=== PATIENT | female | born 1960 | race Caucasian/White ===

== ENCOUNTER 2020-02-10 13:38 | Inpatient (IN) | payer MEDICARE, OTHER ==
[~2020-02-10] VITALS: Ht 160 cm; Wt 63.5 kg
[2020-02-10] MEDS ORDERED: CALC-555 PO (14:08)
[2020-02-10] MEDS ORDERED: BISA10SU61 RC (14:08)
[2020-02-10] MEDS ORDERED: DONE10TA44 PO (14:08)
[2020-02-10] MEDS ORDERED: ACET-73 PO (14:08)
[2020-02-10] MEDS ORDERED: ACET-2154 PO (14:08)
[2020-02-10] MEDS ORDERED: MAGN400O6 PO (14:08)
[2020-02-10] MEDS ORDERED: AMLO5TAB9 PO (14:08)
[2020-02-10] MEDS ORDERED: ASCO500C18 PO (14:08)
[2020-02-10] MEDS ORDERED: SERT50TA PO (14:08)
[2020-02-10] MEDS ORDERED: TIZA4TAB5 PO (14:08)
[2020-02-10] MEDS ORDERED: NA P133E RC (14:08)
[2020-02-10] MEDS ORDERED: OXCA600T8 PO (14:08)
[2020-02-10] MEDS ORDERED: IBUP-1955 PO (14:08)
[2020-02-10] MEDS ORDERED: MEMA10TA PO (14:08)
[2020-02-10] MEDS ORDERED: MULTIVITAMINS PO (14:08)
[2020-02-10] MEDS ORDERED: OXCA300T15 PO (14:08)
--- NOTE | 2020-02-10 14:10 | NUR ---
PT BROUGHT IN BY AMBULANCE VIA GURNEY FROM [facility] ([facility]): C/O FEVER OF 100.2f PT AT RA, MASK WORN, WITH R SHOULDER IMMOBILIZER AND BOTH ANKLE PADDED PROTECTORS NAD NONVERBAL AIRWAY PATENT. Patient is UNable to follow /comprehend directions. NONAMBULATORY. No cardiovascular distress noted. Rate and rhythm are regular. No CP. No respiratory distress noted. Respirations even & unlabored with symmetrical chest rise. No adventitious sounds noted. No recent travel. 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 Patient is INcontinent of bowel and bladder function.
[2020-02-10 15:00] LABS: BASOPHILS % (AUTO) 0.3 % (0.0-2.0); EOSINOPHILS % (AUTO) 0.1 % (0.0-7.0); HEMATOCRIT 46.7 % (31.2-41.9); HEMOGLOBIN 15.2 g/dL (10.9-14.3); LYMPHOCYTES # (AUTO) 0.8 K/uL (20.0-40.0); LYMPHOCYTES % (AUTO) 8.6 % (20.5-51.5); MEAN CORPUSCULAR HEMOGLOBIN 28.1 uug (24.7-32.8); MEAN CORPUSCULAR HGB CONC 33 g/dL (32.3-35.6); MEAN CORPUSCULAR VOLUME 86.5 fL (75.5-95.3); MONOCYTES # (AUTO) 0.5 K/uL (2.0-10.0); MONOCYTES % (AUTO) 5.6 % (0.0-11.0); NEUTROPHILS # (AUTO) 7.5 K/uL (1.8-8.9); NEUTROPHILS % (AUTO) 85.4 % (38.5-71.5); PLATELET COUNT (AUTO) 460 K/uL (179-408); WHITE BLOOD COUNT (AUTO) 8.8 K/uL (3.8-11.8)
[2020-02-10 15:10] LABS: CREATININE 0.8 mg/dL (0.6-1.3); POTASSIUM 3.5 mmol/L (3.5-5.1)
--- NOTE | 2020-02-10 15:42 | NUR ---
EPIC PAGED DR BOLDEN
[2020-02-10 15:47] LABS: *BILIRUBIN,URIN NEGATIVE (NEGATIVE); *BLOOD, URINE NEGATIVE (NEGATIVE); *CLARITY,URINE CLEAR (CLEAR); *COLOR,URINE YELLOW (YELLOW); *KETONES,URINE 1+ (NEGATIVE); *UROBILINOGEN,URINE 0.2 E.U./dl (NORMAL); LEUKOCYTE ESTERASE ,URINE 1+ (NEGATIVE); NITRITE, URINE NEGATIVE (NEGATIVE); PH,URINE 5.5 (5.0-8.0); UGLUCOSE NEGATIVE (NEGATIVE)
[2020-02-10 15:49] LABS: BILIRUBIN,TOTAL 0.3 mg/dL (0.2-1.0)
[2020-02-10 15:59] LABS: BACTERIA,URINE FEW /HPF (NONE SEEN); RBC,URINE 0-3 /HPF (0-3)
[2020-02-10 16:00] LABS: SQUAMOUS EPITHELIAL CELL,UR MODERATE /HPF (NONE SEEN)
--- NOTE | 2020-02-10 16:00 | NUR ---
HAND OFF AND SBAR GIVEN TO MARCH PT OK TO ADMIT TO TELE RM [id number] DX: COVID 19 INFECTION, FEVER UNDER DR SHEPPARD
[2020-02-10] MEDS ORDERED: CEFTRIAXONE 1 G in IV DEXTROSE 5% 50 ML IV ONE (16:30)
[2020-02-10] MEDS ORDERED: IV NORMAL SALINE 1000 ML BAG IV ONE (16:30)
[2020-02-10] MEDS ORDERED: CEFTRIAXONE /D5W 50ML IVPB **ER PYXIS IV ONE (16:48)
[2020-02-10] MEDS ORDERED: FLEET ENEMA 133 ML BOTTLE RC PRN (17:45)
[2020-02-10] MEDS ORDERED: MAGNESIUM HYDROXIDE 30 ML LIQUID UDC PO PRN (17:45)
[2020-02-10] MEDS ORDERED: BISACODYL 10 MG SUPP.RECT RC PRN (17:45)
[2020-02-10] MEDS: OXCARBAZEPINE 300 MG TABLET PO SCH (18:00)
[2020-02-10] MEDS: AZITHROMYCIN IV 500 MG in IV DEXTROSE 5% 250 ML IV SCH (18:00)
[2020-02-10] MEDS ORDERED: ACETAMINOPHEN ES 500 MG TABLET PO PRN (18:00)
--- NOTE | 2020-02-10 18:00 | NUR ---
TRANSPORTED TO FLOOR
--- NOTE | 2020-02-10 18:15 | NUR ---
RECEIVED PATIENT FROM ER AND ADMITTED TO THE [facility] WITH DIAGNOSIS OF COVID 19 AND FEVER. NO SOB NOTED AND PATIENT AFEBRILE 98.0. NO C/O PAIN. KEPT CLEAN AND DRY AT ALL TIMES. IV SITE ON LEFT HAND # 20 GAUGE. WILL CONTINUE TO MONITOR.
[2020-02-10 19:37] VITALS: BP 138/87
--- NOTE | 2020-02-10 20:00 | NUR ---
Received patient in bed asleep, arousable to touch. Patient nonverbal. No SOB noted. Admission protocol continued. SR on Tele monitor. Patient w/ sling on R arm for R clavicle fx. Body assessment done. Call light in reach
[2020-02-10] MEDS: ACETAMINOPHEN 325 MG TABLET PO PRN (22:05)
[2020-02-10 22:08] VITALS: BP 141/79
[2020-02-11] VITALS: BP 132/83
[2020-02-11 04:00] VITALS: BP 122/88
[2020-02-11] MEDS: PANTOPRAZOLE ORAL SUSPENSION 40 MG SUSPDR.PKT PO SCH ×2 (06:02→09:16)
--- NOTE | 2020-02-11 06:52 | NUR ---
Patient slept well. No complaints of pain. Afebrile at this time. SR on Tele monitor. On contact/droplet isolation for covid19. Turned and repositioned Q2. Will endorse accordingly
[2020-02-11] MEDS ORDERED: PANTOPRAZOLE SODIUM 40 MG TABLET.DR PO SCH (07:00)
[2020-02-11 07:19] LABS: BASOPHILS % (AUTO) 0.4 % (0.0-2.0); HEMATOCRIT 45.5 % (31.2-41.9); HEMOGLOBIN 14.8 g/dL (10.9-14.3); LYMPHOCYTES # (AUTO) 0.7 K/uL (20.0-40.0); LYMPHOCYTES % (AUTO) 9.9 % (20.5-51.5); MEAN CORPUSCULAR HEMOGLOBIN 28.6 uug (24.7-32.8); MEAN CORPUSCULAR HGB CONC 33 g/dL (32.3-35.6); MEAN CORPUSCULAR VOLUME 87.7 fL (75.5-95.3); MONOCYTES # (AUTO) 0.6 K/uL (2.0-10.0); MONOCYTES % (AUTO) 7.9 % (0.0-11.0); NEUTROPHILS # (AUTO) 5.9 K/uL (1.8-8.9); NEUTROPHILS % (AUTO) 81.8 % (38.5-71.5); PLATELET COUNT (AUTO) 494 K/uL (179-408); RED BLOOD CELL COUNT(AUTO) 5.19 MIL/uL (3.63-4.92); WHITE BLOOD COUNT (AUTO) 7.2 K/uL (3.8-11.8)
[2020-02-11 07:36] LABS: BILIRUBIN,TOTAL 0.4 mg/dL (0.2-1.0); CREATININE 0.8 mg/dL (0.6-1.3); PHOSPHOROUS 3.8 mg/dL (2.5-4.9); POTASSIUM 4.3 mmol/L (3.5-5.1)
[2020-02-11 08:00] VITALS: BP 140/87
[2020-02-11] MEDS ORDERED: Medication Not On Formulary EA (Ascorbic Acid (Vitamin C) 500 MG) PO SCH (09:00)
[2020-02-11] MEDS ORDERED: DONEPEZIL 10 MG TABLET PO SCH (09:00)
[2020-02-11] MEDS: OXCARBAZEPINE 300 MG TABLET PO SCH ×2 (09:16→17:16)
[2020-02-11] MEDS: ASCORBIC ACID 500 MG TABLET PO SCH (09:16)
[2020-02-11] MEDS: MEMANTINE HCL 10 MG TABLET PO SCH ×2 (09:17→16:32)
[2020-02-11] MEDS: MULTIVIT, IRON, MIN NO. 8, FA TABLET PO SCH (09:17)
[2020-02-11] MEDS: SERTRALINE HCL 50 MG TABLET PO SCH (09:17)
[2020-02-11] MEDS: CALCIUM CARB/VITAMIN D 500MG-200UNITS TABLET PO SCH (09:17)
[2020-02-11] MEDS: TIZANIDINE HCL 4 MG TABLET PO SCH ×2 (09:21→16:32)
[2020-02-11] MEDS: AMLODIPINE 5 MG TABLET PO SCH (09:29)
[2020-02-11 11:00] VITALS: BP 136/77
[2020-02-11 11:59] LABS: POTASSIUM 3.8 mmol/L (3.5-5.1)
[2020-02-11] MEDS ORDERED: MULTIVITAMINS PO SCH (13:00)
[2020-02-11 16:00] VITALS: BP 131/73
[2020-02-11] MEDS: AZITHROMYCIN IV 500 MG in IV DEXTROSE 5% 250 ML IV SCH (17:15)
[2020-02-11] MEDS: CEFTRIAXONE 1 G in IV DEXTROSE 5% 50 ML IV SCH (18:08)
--- NOTE | 2020-02-11 19:30 | NUR ---
Received patient asleep. No signs or symptoms of distress noted at this time. Patient on isolation for COVID-19. NSR on tele monitor. Has right arm sling. Will continue to monitor patient.
[2020-02-11 20:05] VITALS: BP 141/86
--- NOTE | 2020-02-11 20:15 | NUR ---
Daughter at bedside and was approved by [facility]. Gus did not feel comfortable signing the no code status for patient. All family is agreeable to having patient as DNR/DNI. Kathryn, eldest daughter to make final decision. Called and spoke to Kathryn. Received verbal telephone consent from Kathryn that patient may be placed on DNR/DNI. Charge nurse, Noemi RICHARDS and Jose RICHARDS received telephone consent. Dr. Moody notified of consent. Dr. Mckeon also notified. Awaiting Dr. Mckeon's response. Will continue to monitor patient. Addendum: 02/11/20 at 2201 by JOSE JARVIS RN Error. Wrong patient.
[2020-02-11] MEDS ORDERED: MORPHINE SULFATE PF IV DRIP 100 MG in IV DEXTROSE 5% 96 ML IV PRN (21:00)
[2020-02-11] MEDS: HYDROXYCHLOROQUINE SULFATE 200 MG TABLET PO SCH (21:10)
[2020-02-12] VITALS: BP 146/87
[2020-02-12 04:00] VITALS: BP 134/86
--- NOTE | 2020-02-12 06:27 | NUR ---
Patient shows no signs or symptoms of distress at this time. NSR on tele monitor. 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 Will endorse patient to day shift nurse in stable condition.
[2020-02-12 07:14] LABS: BASOPHILS # (AUTO) 0.1 K/uL (0.0-8.0); BASOPHILS % (AUTO) 0.7 % (0.0-2.0); EOSINOPHILS % (AUTO) 0.1 % (0.0-7.0); HEMATOCRIT 44.7 % (31.2-41.9); HEMOGLOBIN 14.5 g/dL (10.9-14.3); LYMPHOCYTES # (AUTO) 0.7 K/uL (20.0-40.0); LYMPHOCYTES % (AUTO) 8.5 % (20.5-51.5); MEAN CORPUSCULAR HEMOGLOBIN 28.7 uug (24.7-32.8); MEAN CORPUSCULAR HGB CONC 33 g/dL (32.3-35.6); MEAN CORPUSCULAR VOLUME 88.2 fL (75.5-95.3); MONOCYTES # (AUTO) 0.5 K/uL (2.0-10.0); MONOCYTES % (AUTO) 6.9 % (0.0-11.0); NEUTROPHILS # (AUTO) 6.5 K/uL (1.8-8.9); NEUTROPHILS % (AUTO) 83.8 % (38.5-71.5); PLATELET COUNT (AUTO) 443 K/uL (179-408); RED BLOOD CELL COUNT(AUTO) 5.07 MIL/uL (3.63-4.92); WHITE BLOOD COUNT (AUTO) 7.8 K/uL (3.8-11.8)
--- NOTE | 2020-02-12 07:20 | NUR ---
Received pt in bed asleep but arousable to name and touch. Could only open one eye and close immediately. Doesn't answer questions and obey commands. On O2 @ 2L sat 95%. Right sling in place for right clavicle fx from [facility]. Left hand 20g TKO. Weakness on all extremities.Pt on KCI mattress. Bed locked in lowest position with siderails 2x up. Bed alarm on. Call light within reach. Will continue to monitor.
[2020-02-12 07:52] LABS: CREATININE 0.9 mg/dL (0.6-1.3); PHOSPHOROUS 2.9 mg/dL (2.5-4.9); POTASSIUM 3.4 mmol/L (3.5-5.1)
[2020-02-12] MEDS: CALCIUM CARB/VITAMIN D 500MG-200UNITS TABLET PO SCH (09:38)
[2020-02-12] MEDS: PANTOPRAZOLE ORAL SUSPENSION 40 MG SUSPDR.PKT PO SCH (09:38)
[2020-02-12] MEDS: AMLODIPINE 5 MG TABLET PO SCH (09:40)
[2020-02-12] MEDS: TIZANIDINE HCL 4 MG TABLET PO SCH ×2 (09:40→17:37)
[2020-02-12] MEDS: ASCORBIC ACID 500 MG TABLET PO SCH (09:40)
[2020-02-12] MEDS: MEMANTINE HCL 10 MG TABLET PO SCH ×2 (09:40→17:36)
[2020-02-12] MEDS: SERTRALINE HCL 50 MG TABLET PO SCH (09:41)
[2020-02-12] MEDS: MULTIVIT, IRON, MIN NO. 8, FA TABLET PO SCH (09:53)
[2020-02-12] MEDS: OXCARBAZEPINE 300 MG TABLET PO SCH ×2 (09:54→18:28)
[2020-02-12] MEDS: HYDROXYCHLOROQUINE SULFATE 200 MG TABLET PO SCH ×2 (09:54→17:37)
[2020-02-12 11:47] VITALS: BP 136/80
--- NOTE | 2020-02-12 15:09 | NUR ---
Finished Zoom meeting with sister David.
[2020-02-12] MEDS: ACETAMINOPHEN 325 MG TABLET PO PRN (15:34)
[2020-02-12 16:00] VITALS: BP 134/88
--- NOTE | 2020-02-12 16:00 | NUR ---
Patient's temp at 101.3. Tylenol 650mg PRN given.
--- NOTE | 2020-02-12 16:45 | NUR ---
Endorsed pt to Nanda RICHARDS for change of assignment
[2020-02-12] MEDS ORDERED: POTASSIUM CHLORIDE 20 MEQ POWDER PACKET PO ONE (17:00)
[2020-02-12] MEDS: CEFTRIAXONE 1 G in IV DEXTROSE 5% 50 ML IV SCH (17:37)
[2020-02-12] MEDS: IV 1/2NS 1000 ML 1,000 ML IV PRN (17:38)
[2020-02-12] MEDS: AZITHROMYCIN IV 500 MG in IV DEXTROSE 5% 250 ML IV SCH (18:28)
--- NOTE | 2020-02-12 20:00 | NUR ---
Patient received in bed, sleeping. Difficult to arouse. Not responsive to verbal and tactile stimuli. Some response to painful stimulus. No signs of difficulty in breathing, breathing is even and unlabored. O2 kept on 3LPM, and patient is saturating at 99%. Rest of vitals are stable as well, as recorded. Fall, isolation and aspiration precautions followed. Sinus iliana on tele @ 55, regular. Will continue to monitor.
[2020-02-12 20:46] VITALS: BP 113/70
[2020-02-13 00:25] VITALS: BP 137/70
[2020-02-13 06:03] VITALS: BP 145/90
--- NOTE | 2020-02-13 06:24 | NUR ---
Patient slept well overnight, with no adverse events. No complaints of pain. Afebrile at this time. Sinus Frederic on Tele monitor. Kept contact/droplet isolation for covid19. Turned and repositioned Q2, maintained fall precautiosn. Will endorse accordingly.
[2020-02-13 06:54] LABS: BASOPHILS # (AUTO) 0.1 K/uL (0.0-8.0); BASOPHILS % (AUTO) 1.5 % (0.0-2.0); EOSINOPHILS % (AUTO) 0.7 % (0.0-7.0); HEMATOCRIT 41.6 % (31.2-41.9); HEMOGLOBIN 13.5 g/dL (10.9-14.3); LYMPHOCYTES # (AUTO) 0.7 K/uL (20.0-40.0); LYMPHOCYTES % (AUTO) 11.5 % (20.5-51.5); MEAN CORPUSCULAR HEMOGLOBIN 28.5 uug (24.7-32.8); MEAN CORPUSCULAR HGB CONC 33 g/dL (32.3-35.6); MEAN CORPUSCULAR VOLUME 87.4 fL (75.5-95.3); MONOCYTES # (AUTO) 0.5 K/uL (2.0-10.0); MONOCYTES % (AUTO) 8.5 % (0.0-11.0); NEUTROPHILS # (AUTO) 4.6 K/uL (1.8-8.9); NEUTROPHILS % (AUTO) 77.8 % (38.5-71.5); PLATELET COUNT (AUTO) 415 K/uL (179-408); RED BLOOD CELL COUNT(AUTO) 4.76 MIL/uL (3.63-4.92); WHITE BLOOD COUNT (AUTO) 5.9 K/uL (3.8-11.8)
[2020-02-13 07:04] LABS: CREATININE 0.6 mg/dL (0.6-1.3)
[2020-02-13 07:28] LABS: POTASSIUM 2.8 mmol/L (3.5-5.1)
--- NOTE | 2020-02-13 08:30 | NUR ---
Received patient in bed, non verbal. No signs of distress noted. No SOB, Afebrile. No signs of Pain or discomfort. On contact and droplet Isolation for positive covid 19. Proper PPE strictly Observed. Ket clean and comfortable. Will continue to monitor.
[2020-02-13] MEDS: AMLODIPINE 5 MG TABLET PO SCH (09:10)
[2020-02-13] MEDS: MEMANTINE HCL 10 MG TABLET PO SCH ×2 (09:10→16:06)
[2020-02-13] MEDS: HYDROXYCHLOROQUINE SULFATE 200 MG TABLET PO SCH ×2 (09:10→16:06)
[2020-02-13] MEDS: PANTOPRAZOLE ORAL SUSPENSION 40 MG SUSPDR.PKT PO SCH (09:10)
[2020-02-13] MEDS: CALCIUM CARB/VITAMIN D 500MG-200UNITS TABLET PO SCH (09:10)
[2020-02-13] MEDS: MULTIVIT, IRON, MIN NO. 8, FA TABLET PO SCH (09:10)
[2020-02-13] MEDS: OXCARBAZEPINE 300 MG TABLET PO SCH ×2 (09:11→17:07)
[2020-02-13] MEDS: SERTRALINE HCL 50 MG TABLET PO SCH (09:11)
[2020-02-13] MEDS: TIZANIDINE HCL 4 MG TABLET PO SCH ×2 (09:11→16:06)
[2020-02-13] MEDS: ASCORBIC ACID 500 MG TABLET PO SCH (09:11)
[2020-02-13 12:00] VITALS: BP 139/86
[2020-02-13] MEDS ORDERED: POTASSIUM CHLORIDE 20 MEQ POWDER PACKET PO ONE ×2 (12:00→17:00)
[2020-02-13] MEDS ORDERED: POTASSIUM CHLORIDE 20 MEQ TAB.PRT.SR PO ONE ×2 (12:00→17:00)
[2020-02-13] MEDS: IV 1/2NS 1000 ML 1,000 ML IV PRN (15:06)
[2020-02-13] MEDS: CEFTRIAXONE 1 G in IV DEXTROSE 5% 50 ML IV SCH (16:05)
[2020-02-13 16:32] VITALS: BP 107/57
[2020-02-13] MEDS: AZITHROMYCIN IV 500 MG in IV DEXTROSE 5% 250 ML IV SCH (17:07)
--- NOTE | 2020-02-13 18:31 | NUR ---
Patient in bed, Not opening her eyes, non verbal. No signs of distress noted. No SOB. saturating 98% on 2L, No signs of Pain or discomfort. All due medications given as ordered. Potassium 60meq given for Potassium of 2.8. Kept clean and comfortable. Will endorse to Oncoming Shift.
[2020-02-13 21:56] VITALS: BP 99/60
[2020-02-14 01:31] VITALS: BP 137/65
[2020-02-14 04:38] VITALS: BP 123/91
[2020-02-14] MEDS: IV 1/2NS 1000 ML 1,000 ML IV PRN ×2 (05:52→22:56)
--- NOTE | 2020-02-14 06:31 | NUR ---
Patient slept well the whole night. No SOB. SR on Tele monitor. Remains afebrile. Will endorse accordingly
[2020-02-14 07:03] LABS: CREATININE 0.5 mg/dL (0.6-1.3); POTASSIUM 3.8 mmol/L (3.5-5.1)
--- NOTE | 2020-02-14 07:30 | NUR ---
Received pt in bed asleep, arousable to touch and light pain, non-verbal, and doesn't follow commands. Pt grimaces with pain. O2 @ 2L sat 94%, no SOB and no distress noted at this time. Right sling in place and adjusted. IV left hand 22g infusing 1/2 NS @ 75cc/hr. Bed locked in lowest position with siderails 2x up. Will continue to monitor.
[2020-02-14] MEDS: SERTRALINE HCL 50 MG TABLET PO SCH (09:55)
[2020-02-14] MEDS: ASCORBIC ACID 500 MG TABLET PO SCH (09:57)
[2020-02-14] MEDS: MEMANTINE HCL 10 MG TABLET PO SCH ×2 (09:57→17:13)
[2020-02-14] MEDS: MULTIVIT, IRON, MIN NO. 8, FA TABLET PO SCH (09:58)
[2020-02-14] MEDS: HYDROXYCHLOROQUINE SULFATE 200 MG TABLET PO SCH ×2 (09:58→17:13)
[2020-02-14] MEDS: PANTOPRAZOLE ORAL SUSPENSION 40 MG SUSPDR.PKT PO SCH (09:58)
[2020-02-14] MEDS: CALCIUM CARB/VITAMIN D 500MG-200UNITS TABLET PO SCH (09:59)
[2020-02-14] MEDS: AMLODIPINE 5 MG TABLET PO SCH (10:01)
[2020-02-14] MEDS: OXCARBAZEPINE 300 MG TABLET PO SCH ×2 (10:01→17:14)
[2020-02-14] MEDS: TIZANIDINE HCL 4 MG TABLET PO SCH ×2 (10:02→17:13)
[2020-02-14 11:36] VITALS: BP 121/67
[2020-02-14 15:03] VITALS: BP 123/63
[2020-02-14] MEDS: CEFTRIAXONE 1 G in IV DEXTROSE 5% 50 ML IV SCH (17:12)
[2020-02-14 17:22] VITALS: BP 120/68
[2020-02-14] MEDS: AZITHROMYCIN IV 500 MG in IV DEXTROSE 5% 250 ML IV SCH (17:35)
--- NOTE | 2020-02-14 18:00 | NUR ---
Fleet enema PRN given since pt has not had a BM. tolerated well.
[2020-02-14 22:06] VITALS: BP 128/68
[2020-02-15 00:29] VITALS: BP 132/73
[2020-02-15] MEDS ORDERED: Z GUARD REMEDY PASTE 57 GM TUBE TOP PRN (00:30)
[2020-02-15 04:35] VITALS: BP 134/64
--- NOTE | 2020-02-15 06:46 | NUR ---
Patient slept well. No SOB noted. Remains afebrile. SB and SR on Tele monitor. IV on L hand intact and patent w/ IVF infusing. Will endorse accordingly
[2020-02-15 06:48] LABS: BASOPHILS # (AUTO) 0.1 K/uL (0.0-8.0); BASOPHILS % (AUTO) 1.2 % (0.0-2.0); EOSINOPHILS # (AUTO) 0.1 K/uL (0.0-0.7); EOSINOPHILS % (AUTO) 1.8 % (0.0-7.0); HEMATOCRIT 38.9 % (31.2-41.9); HEMOGLOBIN 12.8 g/dL (10.9-14.3); LYMPHOCYTES # (AUTO) 1.1 K/uL (20.0-40.0); LYMPHOCYTES % (AUTO) 18.8 % (20.5-51.5); MEAN CORPUSCULAR HEMOGLOBIN 28.5 uug (24.7-32.8); MEAN CORPUSCULAR HGB CONC 33 g/dL (32.3-35.6); MEAN CORPUSCULAR VOLUME 86.8 fL (75.5-95.3); MONOCYTES # (AUTO) 0.6 K/uL (2.0-10.0); MONOCYTES % (AUTO) 10.1 % (0.0-11.0); NEUTROPHILS # (AUTO) 4.1 K/uL (1.8-8.9); NEUTROPHILS % (AUTO) 68.1 % (38.5-71.5); PLATELET COUNT (AUTO) 353 K/uL (179-408); RED BLOOD CELL COUNT(AUTO) 4.49 MIL/uL (3.63-4.92); WHITE BLOOD COUNT (AUTO) 6.1 K/uL (3.8-11.8)
[2020-02-15 08:06] LABS: CREATININE 0.5 mg/dL (0.6-1.3); MAGNESIUM 2.4 mg/dL (1.8-2.4); PHOSPHOROUS 2.5 mg/dL (2.5-4.9); POTASSIUM 3.4 mmol/L (3.5-5.1)
[2020-02-15] MEDS: OXCARBAZEPINE 300 MG TABLET PO SCH ×2 (08:48→17:49)
[2020-02-15] MEDS: SERTRALINE HCL 50 MG TABLET PO SCH (08:48)
[2020-02-15] MEDS: CALCIUM CARB/VITAMIN D 500MG-200UNITS TABLET PO SCH (08:49)
[2020-02-15] MEDS: MEMANTINE HCL 10 MG TABLET PO SCH ×2 (08:49→17:46)
[2020-02-15] MEDS: TIZANIDINE HCL 4 MG TABLET PO SCH ×2 (08:50→17:45)
[2020-02-15] MEDS: MULTIVIT, IRON, MIN NO. 8, FA TABLET PO SCH (08:55)
[2020-02-15] MEDS: ASCORBIC ACID 500 MG TABLET PO SCH (08:55)
[2020-02-15] MEDS: AMLODIPINE 5 MG TABLET PO SCH (08:56)
[2020-02-15] MEDS: HYDROXYCHLOROQUINE SULFATE 200 MG TABLET PO SCH ×2 (08:57→17:45)
[2020-02-15] MEDS: PANTOPRAZOLE ORAL SUSPENSION 40 MG SUSPDR.PKT PO SCH (08:57)
[2020-02-15 09:25] VITALS: BP 146/85
[2020-02-15] MEDS ORDERED: POTASSIUM CHLORIDE 20 MEQ TAB.PRT.SR PO ONE (11:15)
[2020-02-15 13:11] VITALS: BP 121/83
[2020-02-15] MEDS: POTASSIUM CHLORIDE 40 MEQ in IV 1/2NS 1000 ML 1,000 ML IV PRN (16:26)
[2020-02-15 17:05] VITALS: BP 140/68
[2020-02-15 19:59] VITALS: BP 142/81
[2020-02-16 00:24] VITALS: BP 123/87
[2020-02-16 04:50] VITALS: BP 105/74
[2020-02-16] MEDS: POTASSIUM CHLORIDE 40 MEQ in IV 1/2NS 1000 ML 1,000 ML IV PRN (05:26)
[2020-02-16 06:21] LABS: BASOPHILS # (AUTO) 0.1 K/uL (0.0-8.0); BASOPHILS % (AUTO) 1.2 % (0.0-2.0); EOSINOPHILS # (AUTO) 0.1 K/uL (0.0-0.7); EOSINOPHILS % (AUTO) 2.1 % (0.0-7.0); HEMATOCRIT 39.1 % (31.2-41.9); HEMOGLOBIN 13.2 g/dL (10.9-14.3); LYMPHOCYTES # (AUTO) 0.9 K/uL (20.0-40.0); LYMPHOCYTES % (AUTO) 16.8 % (20.5-51.5); MEAN CORPUSCULAR HEMOGLOBIN 28.9 uug (24.7-32.8); MEAN CORPUSCULAR HGB CONC 34 g/dL (32.3-35.6); MEAN CORPUSCULAR VOLUME 85.8 fL (75.5-95.3); MONOCYTES # (AUTO) 0.5 K/uL (2.0-10.0); MONOCYTES % (AUTO) 8.9 % (0.0-11.0); NEUTROPHILS # (AUTO) 3.6 K/uL (1.8-8.9); PLATELET COUNT (AUTO) 307 K/uL (179-408); RED BLOOD CELL COUNT(AUTO) 4.56 MIL/uL (3.63-4.92); WHITE BLOOD COUNT (AUTO) 5.1 K/uL (3.8-11.8)
[2020-02-16 07:20] LABS: CREATININE 0.6 mg/dL (0.6-1.3); MAGNESIUM 1.9 mg/dL (1.8-2.4); PHOSPHOROUS 2.4 mg/dL (2.5-4.9); POTASSIUM 4.2 mmol/L (3.5-5.1)
[2020-02-16 08:22] VITALS: BP 140/76
[2020-02-16] MEDS: MULTIVIT, IRON, MIN NO. 8, FA TABLET PO SCH (09:00)
[2020-02-16] MEDS: MEMANTINE HCL 10 MG TABLET PO SCH ×2 (09:00→17:00)
[2020-02-16] MEDS: TIZANIDINE HCL 4 MG TABLET PO SCH ×2 (09:00→17:00)
[2020-02-16] MEDS: ASCORBIC ACID 500 MG TABLET PO SCH (09:00)
[2020-02-16] MEDS: OXCARBAZEPINE 300 MG TABLET PO SCH ×2 (09:00→18:28)
[2020-02-16] MEDS: AMLODIPINE 5 MG TABLET PO SCH (09:00)
[2020-02-16] MEDS: SERTRALINE HCL 50 MG TABLET PO SCH (09:00)
[2020-02-16] MEDS: HYDROXYCHLOROQUINE SULFATE 200 MG TABLET PO SCH (09:00)
[2020-02-16] MEDS: CALCIUM CARB/VITAMIN D 500MG-200UNITS TABLET PO SCH (09:00)
[2020-02-16] MEDS: PANTOPRAZOLE ORAL SUSPENSION 40 MG SUSPDR.PKT PO SCH (09:00)
[2020-02-16] MEDS ORDERED: NEUTRA PHOS PACKET PO ONE (15:15)
[2020-02-16 16:00] VITALS: BP 105/76
[2020-02-16 20:36] VITALS: BP 140/74
--- NOTE | 2020-02-17 00:10 | NUR ---
New IV was inserted into the left forearm, IVF resumed
[2020-02-17 01:33] VITALS: BP 150/73
[2020-02-17 05:16] VITALS: BP 174/89
--- NOTE | 2020-02-17 06:26 | NUR ---
Spoke with dr Moody regarding BP trending up, at 174/89 now. Ordered to change IVF to D5 1/2NS at 60ml/hr, and Vasotec 2.5 IV PRN Q6H for SBP over 150.
[2020-02-17] MEDS ORDERED: IV D5 1/2 NS 1000 ML 1,000 ML IV PRN (06:30)
[2020-02-17] MEDS ORDERED: ENALAPRILAT DIHYDRATE 1.25 MG/1 ML VIAL IV PRN (06:30)
--- NOTE | 2020-02-17 07:11 | NUR ---
Vasotec given, endorsed to the day shift to monitor BP.
--- NOTE | 2020-02-17 08:00 | NUR ---
Received pt. resting in bed. Pt. appears comfortable. Pt. appears in no distress. IV in L forearm 20 gauge intact patent running prescribed fluids. Titrating oxygen down. Pt. is on 1 L saturating at 99% will try pt. on room air. QTC interval of 458 reported from tele conveyor monitor. Vitals stable. safety measures in place. call light within reach. will continue to monitor pt.
[2020-02-17] MEDS: MEMANTINE HCL 10 MG TABLET PO SCH ×2 (09:38→16:50)
[2020-02-17] MEDS: MULTIVIT, IRON, MIN NO. 8, FA TABLET PO SCH (09:38)
[2020-02-17] MEDS: ASCORBIC ACID 500 MG TABLET PO SCH (09:39)
[2020-02-17] MEDS: SERTRALINE HCL 50 MG TABLET PO SCH (09:39)
[2020-02-17] MEDS: PANTOPRAZOLE ORAL SUSPENSION 40 MG SUSPDR.PKT PO SCH (09:39)
[2020-02-17] MEDS: OXCARBAZEPINE 300 MG TABLET PO SCH ×2 (09:39→16:50)
[2020-02-17] MEDS: CALCIUM CARB/VITAMIN D 500MG-200UNITS TABLET PO SCH (09:39)
[2020-02-17] MEDS: TIZANIDINE HCL 4 MG TABLET PO SCH ×2 (09:39→16:50)
[2020-02-17] MEDS: AMLODIPINE 5 MG TABLET PO SCH (09:54)
[2020-02-17 11:00] VITALS: BP 114/72
[2020-02-17 16:00] VITALS: BP 132/78
--- NOTE | 2020-02-17 17:41 | NUR ---
Pt. resting comfortably. Pt on room air saturating 95-99%. Iv intact. Pt. took all medication throughout shift. safety measures in place. call light within reach. will continue to monitor pt.
[2020-02-17 20:10] VITALS: BP 100/54
--- NOTE | 2020-02-17 20:36 | NUR ---
Report given to ARMAND Rothman from [facility] and states understanding. Patient being discharge tonight. Telephone call to patient brother Scott and Sister David and also made aware of patient discharge tonight and states understanding.
--- NOTE | 2020-02-17 20:56 | NUR ---
Telephone call to [facility] and set up transportation for patient. trip #[phone]. workers' compensation claims supervisor around midnight. Informed ARMAND Rothman and patient sister and states understanding.
--- NOTE | 2020-02-17 22:00 | NUR ---
This nurse was informed by Charge nurse Mela that [facility] will be able to picker packer at [phone]. Telephone call to ARMAND Rothman and patient sister David and states understanding.
--- NOTE | 2020-02-17 22:25 | NUR ---
Received patient lying in bed. In no acute distress. VS WNL. O2 sat at 96% on RA. IV site on left FA intact and patent. IVF infusing. Droplet and contact precaution observed. Patient being discharge to [facility] tonight. Continue to monitor. Safety measure initiated.
--- NOTE | 2020-02-17 23:50 | NUR ---
Patient discharge to [facility]. Picked up by [facility] via gurney accompanied by 2 paramedics. In no acute distress. VS WNL. All paper work given to paramedics.
== END 2020-02-18 00:15 | DRG 871 ==
LOC: ER 13:38 → TELE3 17:04 → TELE 02-14 18:23
PROVIDERS: ADMIT Internal Medicine
DX: A41.89 Other specified sepsis (principal); U07.1 COVID-19; J12.89 Other viral pneumonia; G92 Toxic encephalopathy; R53.2 Functional quadriplegia; N17.0 Acute kidney failure with tubular necrosis; J96.01 Acute respiratory failure with hypoxia; N39.0 Urinary tract infection, site not specified; D68.69 Other thrombophilia; E87.0 Hyperosmolality and hypernatremia; G91.9 Hydrocephalus, unspecified; E86.0 Dehydration; E87.6 Hypokalemia; G40.909 Epilepsy, unspecified, not intractable, without status epilepticus; I10 Essential (primary) hypertension; Z66 Do not resuscitate; Z91.81 History of falling; I70.0 Atherosclerosis of aorta
CPT/HCPCS: 36415; 70030-TC; 71045; 83605; 83615; 83735; 84100; 85025; 85730; 86140; 87040; 87086; 93005; A4663; G0378; J0456; J0696; J3480; J3490; J7030; J7060